=== PATIENT | male | born 1965 | race Caucasian/White ===

== ENCOUNTER 2022-04-15 15:20 | Emergency (ER) | payer BC ==
[~2022-04-15] VITALS: Ht 177.8 cm; Wt 81.6 kg
[~2022-04-15 15:20] MED LIST: KENALOG0.1% TP
[2022-04-15 15:29] VITALS: BP 105/48
== END 2022-04-15 16:22 | disposition home or self-care (01) ==
LOC: ED 15:20
DX: R07.81 Pleurodynia (principal); R55 Syncope and collapse; Z88.0 Allergy status to penicillin; Z91.040 Latex allergy status